=== PATIENT | female | born 2000 | race Two or more races ===

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

== ENCOUNTER 2020-08-31 19:40 | Emergency (ER) | payer SELFPAY ==
[~2020-08-31] VITALS: Ht 154.9 cm; Wt 57.2 kg
[2020-08-31 20:05] VITALS: BP 106/70
== END 2020-08-31 22:30 | disposition home or self-care (01) ==
LOC: ER 19:40
DX: S39.012A Strain of muscle, fascia and tendon of lower back, initial encounter (principal); S29.012A Strain of muscle and tendon of back wall of thorax, initial encounter; M54.16 Radiculopathy, lumbar region; X58.XXXA Exposure to other specified factors, initial encounter; Y93.89 Activity, other specified; Y92.89 Other specified places as the place of occurrence of the external cause; Y99.8 Other external cause status
CPT/HCPCS: 72070; 72100

== ENCOUNTER 2021-09-09 15:24 | Emergency (ER) | payer MEDICAID, OTHER ==
[~2021-09-09] VITALS: Ht 154.9 cm; Wt 54.4 kg
[2021-09-09 15:25] VITALS: BP 138/88
== END 2021-09-09 22:41 | disposition home or self-care (01) ==
LOC: EDBD 15:24 → ER 15:24
DX: S83.91XA Sprain of unspecified site of right knee, initial encounter (principal); W01.0XXA Fall on same level from slipping, tripping and stumbling without subsequent striking against object, initial encounter; Y93.89 Activity, other specified; Y92.89 Other specified places as the place of occurrence of the external cause; Y99.8 Other external cause status
CPT/HCPCS: 73562

== ENCOUNTER 2022-02-18 17:18 | Emergency (ER) | payer MEDICAID, OTHER ==
[~2022-02-18] VITALS: Ht 157.5 cm; Wt 80.3 kg
[2022-02-18 18:10] LABS: Basophils # (auto) 0.1 10 ^3/uL (0-0.2); Eosinophils # (auto) 0.1 10 ^3/uL (0-0.8); Eosinophils % (auto) 0.8 % (0.0-7.0); Hemoglobin 13.4 g/dL (12.2-16.2); Lymphocytes # (auto) 2.4 10 ^3/uL (0.4-5.4); Lymphocytes % (auto) 23.7 % (10.0-50.0); Mean Corpuscular Hemoglobin 28.9 pg (28.0-32.0); Mean Corpuscular Hgb Conc. 32.7 g/dL (32.0-36.0); Mean Corpuscular Volume 88.6 fL (80.0-100.0); Monocytes # (auto) 0.9 10 ^3/uL (0-1.3); Monocytes % (auto) 8.7 % (0.0-12.0); Neutrophils # (auto) 6.6 10 ^3/uL (1.6-8.6); Neutrophils % (auto) 65.8 % (37.0-80.0); Nucleated Red Blood Cells % 0.2 %; Red Blood Cells 4.63 10^6/uL (4.0-5.20); Red Cell Distribution Width 14.2 % (11.8-14.3)
[2022-02-18 18:27] LABS: Albumin 4.2 g/dL (3.4-5.0); BUN/Creatinine Ratio 14.3; Calcium 9.4 mg/dL (8.5-10.1); Potassium 3.7 mmol/L (3.5-5.1)
[2022-02-18 18:30] LABS: Bilirubin, Total 0.3 mg/dL (0.2-1.0); Total Protein 8.8 g/dL (6.4-8.2)
[2022-02-18 18:49] LABS: Urine Amorphous Crystal FEW /hpf (None Seen); Urine Bacteria MOD /hpf (None Seen); Urine Blood 1+ /uL (Negative); Urine Mucus FEW (None Seen); Urine Specific Gravity 1.036 (1.001-1.035); Urine WBC 2 /hpf (0 - 5)
[2022-02-18] MEDS ORDERED: CEPH-322 PO (23:34)
[2022-02-18 23:46] VITALS: BP 129/76
== END 2022-02-18 23:51 | disposition home or self-care (01) ==
LOC: ER 17:18
DX: N39.0 Urinary tract infection, site not specified (principal)
CPT/HCPCS: 36415; 80053; 81001; 81025; 85025